=== PATIENT | male | born 1945 | race Caucasian/White ===

== ENCOUNTER 2025-05-13 17:04 | Emergency (ER) | payer MEDICARE, OTHER, SELFPAY ==
[2025-05-13 17:16] VITALS: BP 117/69
--- NOTE | 2025-05-13 19:22 | ED.GENMED ---
History of Present Illness
General
Chief Complaint: Fall
Time Seen by Provider: 05/13/25 18:51
History of Present Illness
History of Present Illness:
79-year-old male with history of hypertension, hyperlipidemia, and wgi-ipxmmgq-gjzlliava diabetes presents to the emergency department for evaluation of left chest wall/thoracic back pain after a mechanical fall, tripped while carrying a hose to the
sidewalk and fell onto his left side. He is able to ambulate after the injury. Also notes a skin tear to the left forearm. Denies head strike. Not on anticoagulants
Past History
Past History
ED Past Medical History: HTN, Hypercholesterolemia and NIDDM
Social History
Tobacco: Non-smoker
Personal:
Living: with family
Review of Systems
Review of Systems
Allergies reviewed?: Yes
All Other Systems: ROS reviewed and negative except as documented in HPI and ROS
Phy Exam
Physical Exam
Physical Exam:
GEN: Well appearing, NAD, WDWN
HEENT: Oral mucosa moist, no scleral icterus
Cardiac: Regular rate
Lung: No respiratory distress, no tachypnea, lungs clear to auscultation bilaterally
Chest: No obvious chest wall deformity, no flail segment, no subcutaneous emphysema, palpable tenderness to the periscapular thoracic back on the left
MSK: No gross deformity or injuries
Skin: Good color, no pallor or jaundice, no rashes. Superficial skin tears of the left forearm and left upper arm with no active bleeding
Neuro: AO x3, moves all extremities freely
Psych: Calm, cooperative
Course
Orders/Labs/Results
Orders:
Orders
05/13/25 19:19
CR Ribs-left 3 Vw W/pa Chest Urgent
Comment:
Reason For Exam: fall
05/13/25 20:57
Lidocaine [Lidocaine 4% Patch] 1 patch TOPICAL NOW STA
Apply Lidocaine patch(s) to:: L thoracic back
Oxycodone/Acetaminophen [Percocet 5/325] 1 tablet PO NOW STA
Incentive Spirometry [Rx Incentive Spirometry] [RESP] Urgent
Frequency: q1h while awake
Vital Signs
Initial and Last Documented VS:
Initial Vital Signs
Temp Pulse Resp BP Pulse Ox
97.5 F 74 18 117/69 97
05/13/25 17:16 05/13/25 17:16 05/13/25 17:16 05/13/25 17:16 05/13/25 17:16
Last Documented Vital Signs
Temp Pulse Resp BP Pulse Ox
98 F 77 16 107/65 96
05/13/25 21:22 05/13/25 21:22 05/13/25 21:22 05/13/25 21:22 05/13/25 21:22
MDM/Problems Addressed
MDM/Problems Addressed:
X-rays independently interpreted by me reveal left 6th and 7th rib fractures with no evidence for pulmonary contusion or hemothorax. Patient is clinically stable at this time. Did have small skin tear to left arm that was dressed with Xeroform
after irrigation. Will prescribe analgesics and provide incentive spirometer for pain
*Pulse Oximetry
SaO2: 97
Oxygen Mode of Delivery: Room air
Patient hypoxic: no
*Critical Care Note
Total Time (30-74mins, 75-104mins- exclusive of procedures): Not Applicable
ED Attending Note
-
Portions of this chart may have been created with voice recognition software.� Occasional wrong word or��sound alike� substitutions may have occurred due to the inherent limitations of voice recognition software.
Discharge Plan
Departure
Patient Disposition: Home (Routine Discharge)
Date of Disposition: 05/13/25
Time of Disposition: 20:58
Patient with high blood pressure during this ER visit?: No
Discharge Problem:
Fracture, ribs
Instructions: Rib fracture or bruised rib - ED (DC)
Prescriptions:
New
oxycodone-acetaminophen [Percocet] 5-325 mg tablet
1 tab PO Q6HPRN PRN (Reason: pain) Qty: 10 0RF
No Action
cephalexin 500 mg capsule
1,000 mg PO BID 5 Days Qty: 20 0RF
Referrals:
Beatris Caldwell MD [Family Provider, Internal Medicine]
Activity Restrictions/Additional Instructions:
Use the incentive spirometer 10 times per hour for the first 5 days, then 5 times per hour while awake for 2 weeks
Use pain medication ONLY when needed
Topical lidocaine patches can be applied once per day
Follow up with your primary doctor in 1-2 weeks
Interventions
Interventions:
*Risk Screen - Suicide Last Done: 05/13/25 17:16
*General Assessment Last Done: 05/13/25 17:16
*Neglect/Abuse Screening Last Done: 05/13/25 19:30
*ED- Fall Risk Assessment Last Done: 05/13/25 21:22
*ED COVID-19 Vaccine History Last Done: 05/13/25 17:16
*ED Influenza Vaccine History Last Done: 05/13/25 17:16
*Nursing Disposition Last Done: 05/13/25 21:22
ED-Musculoskeletal Assessment Last Done: 05/13/25 19:30
ED- Neurological Assessment Last Done: 05/13/25 19:30
ED-Skin Assessment Last Done: 05/13/25 19:30
Discharge Date and Time
Discharge Date/Time: 05/13/25 21:25
Print Language: TRINIDADIAN
[2025-05-13 19:25] VITALS: BP 120/59
[2025-05-13 19:28] VITALS: BMI 28.2
[2025-05-13 20:00] VITALS: BP 118/68
[2025-05-13] MEDS: LIDOCAINE 4% PATCH 1 PATCH TOPICAL (21:14)
[2025-05-13] MEDS: PERCOCET 5/325 1 TABLET PO (21:15)
[2025-05-13 21:22] VITALS: BP 107/65
== END 2025-05-13 21:25 | disposition home or self-care (01) ==
LOC: EMR 17:04
PROVIDERS: EMERGENCY PHYSICIAN Emergency Medicine; FAMILY PHYSICIAN Internal Medicine
DX: S22.42XA Multiple fractures of ribs, left side, initial encounter for closed fracture (principal); S51.812A Laceration without foreign body of left forearm, initial encounter; W01.10XA Fall on same level from slipping, tripping and stumbling with subsequent striking against unspecified object, initial encounter; I10 Essential (primary) hypertension; E78.00 Pure hypercholesterolemia, unspecified; E11.9 Type 2 diabetes mellitus without complications
CPT/HCPCS: 99283; 71101